=== PATIENT | male | born 1965 | race Hispanic/Latino ===

== ENCOUNTER 2018-09-04 12:56 | Inpatient (IN) | payer MEDICARE ==
[~2018-09-04] VITALS: Ht 167.6 cm; Wt 73.0 kg
[~2018-09-04 12:56] MED LIST: ETOMIDATE 2 MG/ML 10 ML VIAL IVP ONE; SUCCINYLCHOLINE CHLORIDE 20 MG/ML 10 ML VIAL IVP ONE
[2018-09-04 13:21] LABS: EOSINOPHILS % (AUTO) 1.7 % (0.0-8.0); HEMATOCRIT 52.2 % (42-54); LYMPHOCYTES % (AUTO) 29.1 % (21.0-51.0); MEAN CORPUSCULAR HGB CONC 34.3 g/dL (32.0-36.0); MEAN CORPUSCULAR VOLUME 99.1 fL (79-99); MONOCYTES % (AUTO) 10.6 % (3.0-13.0); NEUTROPHILS % (AUTO) 57.6 % (40.0-77.0); PLATELET COUNT (AUTO) 161 K/uL (130-400); RED BLOOD CELL COUNT(AUTO) 5.27 MIL/uL (4.50-6.20); RED CELL DISTRIBUTION WIDTH 13.5 % (11.0-15.5); WHITE BLOOD COUNT (AUTO) 5.5 K/uL (4.8-10.8)
[2018-09-04 13:30] LABS: CARBON DIOXIDE 20 mmol/L (21-32); CHLORIDE 105 mmol/L (101-111); CREATININE 1.2 mg/dL (0.5-1.5); GLOMERULAR FILTR. RATE CALC 68 mL/min (>60); GLUCOSE,RANDOM 113 mg/dL (70-105); POTASSIUM 3.3 mmol/L (3.5-5.1); SODIUM SERUM 141 mmol/L (136-145); UREA NITROGEN, BLOOD 8 mg/dL (7-18)
[2018-09-04 13:34] LABS: ALANINE AMINOTRANSFERASE 91 U/L (12-78); ALBUMIN 3.6 g/dL (3.5-5.0); ASPARTATE AMINOTRANSFERASE 81 U/L (10-37); BILIRUBIN,TOTAL 1.1 mg/dL (0.2-1.0); CREATINE KINASE, TOTAL 88 U/L (21-232); TOTAL PROTEIN, SERUM 6.8 g/dL (6.0-8.3)
[2018-09-04] MEDS ORDERED: LORAZEPAM 2 MG/ML 1 ML VIAL ONE ×2 (13:36→14:42)
[2018-09-04 13:47] LABS: ALCOHOL, BLOOD < 3 mg/dL (0-10)
[2018-09-04 13:57] LABS: B-TYPE NATRIURETIC PEPTIDE 21 pg/mL (0-100)
[2018-09-04 14:03] LABS: APPEARANCE,URINE Cloudy (CLEAR); BILIRUBIN,URINE Negative (NEGATIVE); COLOR,URINE Yellow (YELLOW); GLUCOSE, URINE (UA) Negative (NEGATIVE); KETONES,URINE Negative (NEGATIVE); LEUKOCYTE ESTERASE ,URINE Negative (NEGATIVE); NITRATE,URINE Negative (NEGATIVE); OCCULT BLOOD,URINE Negative (NEGATIVE); PH,URINE >=9.0 (5.0-8.0); PROTEIN,URINE Trace mg/dL (NEGATIVE)
[2018-09-04 14:09] LABS: AMPHET/METH SCREEN,URINE NEGATIVE (NEGATIVE); BARBITURATE SCREEN, URINE NEGATIVE (NEGATIVE); BENZODIAZEPINES SCREEN,URINE NEGATIVE (NEGATIVE); CANNABINOID SCREEN,URINE NEGATIVE (NEGATIVE); COCAINE SCREEN,URINE POSITIVE (NEGATIVE); OPIATE SCREEN,URINE NEGATIVE (NEGATIVE); PHENCYCLIDINE SCREEN,URINE NEGATIVE (NEGATIVE)
[2018-09-04 14:11] LABS: INR 4.23 (0.85-1.15); PARTIAL THROMBOPLASTIN TIME > 120.0 SEC (26.3-35.5); PROTHROMBIN TIME 43.2 SEC (9.6-11.6)
[2018-09-04] MEDS ORDERED: FOSPHENYTOIN SODIUM 1,000 MG in SODIUM CHLORIDE 0.9% 50 ML IJ ONE (14:15)
[2018-09-04] MEDS ORDERED: FOSPHENYTOIN SODIUM 500 MG/10ML VIAL IJ ONE (14:20)
[2018-09-04] MEDS ORDERED: SODIUM CHLORIDE 0.9% 100 ML IV ONE (14:21)
[2018-09-04 14:44] LABS: INR 0.94 (0.85-1.15); PARTIAL THROMBOPLASTIN TIME 28.2 SEC (26.3-35.5); PROTHROMBIN TIME 9.9 SEC (9.6-11.6)
[2018-09-04] MEDS ORDERED: PROPOFOL 1000 MG/100 ML 100 ML IV ONE ×2 (14:49→19:12)
[2018-09-04 15:08] LABS: BACTERIA,URINE Rare /HPF (None Seen); RBC,URINE 0-1 /HPF (0-1); SQUAMOUS EPITHELIAL CELL,UR Rare /HPF (0-2); WBC,URINE 0-1 /HPF (0-1)
[2018-09-04 15:09] LABS: AMORPHOUS SEDIMENT,UR Moderate /LPF (None Seen)
[2018-09-04] MEDS: SODIUM CHLORIDE 0.9% 1000ML 1,000 ML IV SCH (15:19)
[2018-09-04] MEDS ORDERED: MIDAZOLAM HCL 1 MG/ML 2ML VIAL ONE (15:25)
[2018-09-04] MEDS ORDERED: ONDANSETRON HCL 4 MG/2 ML VIAL IV PRN (15:30)
[2018-09-04] MEDS ORDERED: IPRATROPIUM/ALBUTEROL SULFATE 3 ML SOLUTION IH PRN (15:30)
[2018-09-04] MEDS ORDERED: MORPHINE SULFATE 2 MG/ML 1ML SYG IV PRN (15:30)
[2018-09-04] MEDS ORDERED: LACTULOSE 20 GM/30 ML UDCUP PO PRN (15:30)
[2018-09-04] MEDS ORDERED: MIDAZOLAM 100MG-0.9% NS 100ML 100 ML IV PRN (15:45)
[2018-09-04] MEDS ORDERED: SODIUM CHLORIDE 0.9% 1000ML 1,000 ML IV ONE (16:51)
[2018-09-04] MEDS: LEVETIRACETAM 500 MG in SODIUM CHLORIDE 0.9% 100 ML IV SCH (17:00)
[2018-09-04] MEDS ORDERED: NICARDIPINE IN NACL, ISO-OSM 200 ML IV PRN (17:15)
[2018-09-04] MEDS ORDERED: HYDRALAZINE HCL 20 MG/ML VIAL IV PRN (17:15)
[2018-09-04] MEDS ORDERED: LABETALOL 20 MG/4 ML DISP.SYRIN IV PRN (17:15)
[2018-09-04] MEDS: PHARMACY COMMUNICATION MISC SCH (17:15)
[2018-09-04 18:50] LABS: ABG BASE EXCESS -4.9 mmol/L (-2.0-3.0); ABG HCO3 19.7 mmol/L (21.0-28.0); ABG OXYGEN SATURATION 99.9 % (95.0-99.0); ABG PCO2 36 mmHg (35-48)
[2018-09-04 20:00] VITALS: BP 125/88
[2018-09-04 21:00] VITALS: BP 92/60
[2018-09-04 22:00] VITALS: BP 98/67
[2018-09-04 22:45] VITALS: BP 99/69
[2018-09-04 23:00] VITALS: BP 97/64
[2018-09-05] VITALS (37 sets, daily range): BP systolic 80–146; BP diastolic 48–93
[2018-09-05 00:22] LABS: ABG BASE EXCESS -5.3 mmol/L (-2.0-3.0); ABG OXYGEN SATURATION 99.2 % (95.0-99.0); ABG PCO2 34 mmHg (35-48)
[2018-09-05] MEDS: SODIUM CHLORIDE 0.9% 1000ML 1,000 ML IV SCH ×3 (01:19→23:46)
[2018-09-05] MEDS ORDERED: ESLI800T PO (02:29)
[2018-09-05] MEDS ORDERED: GABA-529 PO (02:29)
[2018-09-05] MEDS ORDERED: NITR0.4T50 SL (02:29)
[2018-09-05] MEDS ORDERED: DULO20CA18 PO (02:29)
[2018-09-05] MEDS ORDERED: PANT40TA25 PO (02:29)
[2018-09-05] MEDS ORDERED: SUCR1TAB2 PO (02:29)
[2018-09-05] MEDS ORDERED: AMLO10TA7 PO (02:29)
[2018-09-05] MEDS ORDERED: ZONI100C6 PO (02:29)
[2018-09-05] MEDS ORDERED: LACO200T2 PO (02:29)
[2018-09-05 04:02] LABS: MEAN CORPUSCULAR HEMOGLOBIN 34.7 pg (27.0-33.0); MEAN CORPUSCULAR HGB CONC 34.8 g/dL (32.0-36.0); MEAN CORPUSCULAR VOLUME 99.8 fL (79-99); PLATELET COUNT (AUTO) 147 K/uL (130-400); RED BLOOD CELL COUNT(AUTO) 4.61 MIL/uL (4.50-6.20); RED CELL DISTRIBUTION WIDTH 13.2 % (11.0-15.5); WHITE BLOOD COUNT (AUTO) 9.3 K/uL (4.8-10.8)
[2018-09-05 04:08] LABS: ALBUMIN 2.9 g/dL (3.5-5.0); BILIRUBIN,TOTAL 0.8 mg/dL (0.2-1.0); CREATININE 0.9 mg/dL (0.5-1.5); POTASSIUM 3.6 mmol/L (3.5-5.1); TOTAL PROTEIN, SERUM 5.6 g/dL (6.0-8.3)
[2018-09-05] MEDS: LEVETIRACETAM 500 MG in SODIUM CHLORIDE 0.9% 100 ML IV SCH (05:25)
[2018-09-05] MEDS: PROPOFOL 1000 MG/100 ML 100 ML IV PRN ×2 (05:26→21:22)
[2018-09-05] MEDS: PHARMACY COMMUNICATION MISC SCH ×3 (09:00→17:14)
[2018-09-05] MEDS ORDERED: ENOXAPARIN SODIUM 30 MG/0.3 ML SQ SCH (09:00)
[2018-09-05] MEDS ORDERED: COMPOUND IV MISC 1 EACH IVSOLN MISC PRN (11:30)
--- NOTE | 2018-09-05 12:15 | NUR ---
SIEZURE ACTIVITY DESPITE SEDATIVE MEDS, PATIENT IS SEEN HAVING CONTINUOUS REPETITIVE, TONIC CLONIC MOVEMENTS IN HIS ARMS, AND NOT RESPONDING TO VERBAL STIMULUS. ATIVAN GIVEN PER MD ORDER. PATIENT NOW POSTICTAL AND NO LONGER MOVING. ARMS AT REST BY HIS SIDE. WILL CONTINUE TO MONITOR PATIENT FOR SEIZURE ACTIVITY AND NOTIFY DR CABRERA.
[2018-09-05] MEDS: LORAZEPAM 2 MG/ML 1 ML VIAL IVP PRN (12:18)
[2018-09-05] MEDS: FOSPHENYTOIN SODIUM 100 MG/2 ML VIAL IV SCH ×2 (12:18→20:17)
[2018-09-05] MEDS: FAMOTIDINE/PF 20 MG/2 ML VIAL IV SCH (12:18)
[2018-09-05] MEDS ORDERED: IOHEXOL-350 75 ML VIAL IV ONE ×2 (13:54→14:15)
[2018-09-05] MEDS: LEVETIRACETAM 1,000 MG in SODIUM CHLORIDE 0.9% 100 ML IV SCH (17:31)
--- NOTE | 2018-09-05 19:30 | NUR ---
MOTHER OF PATIENT'S CHILDREN AT BEDSIDE SHE STATES THAT PATIENT WAS JUST AT [facility] IN [place] APPROXIMATELY THE LAST WEEK OF JULY AND WAS TOLD AFTER RECEIVING AN MRI THAT HE HAD A BRAIN TUMOR DEEP INSIDE NEAR THE CENTER OF HIS BRAIN. HE WAS THERE BECAUSE HE WAS EXPERIENCING SEIZURES AT THAT TIME WELL. WILL REQUEST MEDICAL RECORDS INCLUDING MRI.
[2018-09-05] MEDS: ESLICARBAZEPINE ACETATE 800 MG PO SCH (20:53)
[2018-09-05] MEDS: ZONISAMIDE 100 MG CAP PO SCH (20:53)
--- NOTE | 2018-09-05 23:30 | NUR ---
critical care critical care paged at this time due to decreased bp and fever
--- NOTE | 2018-09-05 23:35 | NUR ---
[facility] HOSTLER HELPER NOTIFIED AT THIS TIME OF LOW BP AND FEVER ATTEMPTS TO DECREASE SEDATION FAILED DUE TO PT HAVING TREMORS. NEW ORDERS RECEIVED AND WILL CARRY OUT. WILL CONTINUE TO MONITOR.
[2018-09-05] MEDS ORDERED: SODIUM CHLORIDE 0.9% 250 ML IV ONE (23:41)
[2018-09-05] MEDS ORDERED: NOREPINEPHRINE BITARTRATE 1 MG/1 ML ML IV ONE (23:41)
[2018-09-05] MEDS ORDERED: ACETAMINOPHEN 325 MG TAB PO PRN (23:45)
[2018-09-05] MEDS ORDERED: NOREPINEPHRINE 4MG/NS 250ML 250 ML IV SCH (23:45)
[2018-09-06] VITALS (33 sets, daily range): BP systolic 74–120; BP diastolic 48–71
[2018-09-06 00:25] LABS: APPEARANCE,URINE Clear (CLEAR); BILIRUBIN,URINE Moderate (NEGATIVE); COLOR,URINE Dark Yellow (YELLOW); GLUCOSE, URINE (UA) Negative (NEGATIVE); KETONES,URINE >=160 mg/dL (NEGATIVE); LEUKOCYTE ESTERASE ,URINE Small (NEGATIVE); NITRATE,URINE Negative (NEGATIVE); OCCULT BLOOD,URINE Negative (NEGATIVE); PH,URINE 5.5 (5.0-8.0); PROTEIN,URINE POS 1+ mg/dL (NEGATIVE)
[2018-09-06 00:39] LABS: BACTERIA,URINE None Seen /HPF (None Seen); RBC,URINE None Seen /HPF (0-1); SQUAMOUS EPITHELIAL CELL,UR Rare /HPF (0-2); WBC,URINE 0-1 /HPF (0-1)
[2018-09-06] MEDS: PHARMACY COMMUNICATION MISC SCH ×3 (01:15→17:15)
[2018-09-06] MEDS: LORAZEPAM 2 MG/ML 1 ML VIAL IVP PRN (01:58)
[2018-09-06] MEDS: FOSPHENYTOIN SODIUM 100 MG/2 ML VIAL IV SCH ×3 (02:56→20:15)
[2018-09-06 04:05] LABS: CREATININE 1.1 mg/dL (0.5-1.5); POTASSIUM 3.6 mmol/L (3.5-5.1)
[2018-09-06 04:09] LABS: HEMATOCRIT 48.3 % (42-54); MEAN CORPUSCULAR HEMOGLOBIN 34.5 pg (27.0-33.0); MEAN CORPUSCULAR HGB CONC 34.1 g/dL (32.0-36.0); MEAN CORPUSCULAR VOLUME 101.1 fL (79-99); PLATELET COUNT (AUTO) 147 K/uL (130-400); RED BLOOD CELL COUNT(AUTO) 4.78 MIL/uL (4.50-6.20); RED CELL DISTRIBUTION WIDTH 13.8 % (11.0-15.5); WHITE BLOOD COUNT (AUTO) 17.2 K/uL (4.8-10.8)
[2018-09-06] MEDS: LEVETIRACETAM 1,000 MG in SODIUM CHLORIDE 0.9% 100 ML IV SCH ×2 (04:37→17:15)
[2018-09-06] MEDS: PROPOFOL 1000 MG/100 ML 100 ML IV PRN ×2 (05:23→11:15)
[2018-09-06] MEDS: ZONISAMIDE 100 MG CAP PO SCH ×2 (09:00→20:28)
[2018-09-06] MEDS ORDERED: VANCOMYCIN PROTOCOL PER PHARMACY IV SCH (09:00)
[2018-09-06] MEDS: CHLORHEXIDINE GLUCONATE 473 ML MOUTHWASH MM SCH ×3 (09:00→20:29)
[2018-09-06] MEDS: FAMOTIDINE/PF 20 MG/2 ML VIAL IV SCH (09:00)
--- NOTE | 2018-09-06 09:30 | NUR ---
2D ECHO IN PROGRESS. SISTER IN ROOM AND GIVEN UPDATE.
[2018-09-06] MEDS ORDERED: COMPOUND IV REFRIGERATED 1 EACH IVSOLN MISC PRN (09:45)
[2018-09-06 10:38] LABS: INR 0.92 (0.85-1.15); PARTIAL THROMBOPLASTIN TIME 32.9 SEC (26.3-35.5); PROTHROMBIN TIME 9.7 SEC (9.6-11.6)
[2018-09-06] MEDS: ZOSYN 3.375GM+NS 50ML 50 ML IV SCH ×2 (11:18→17:15)
--- NOTE | 2018-09-06 12:48 | NUR ---
KECIA PLAN PATIENT STILL UNSTABLE. NO FAMILY AT BEDSIDE. YESSENIA WILL CONTINUE TO FOLLOW AND WILL DO IA WHEN FAMILY AVAILABLE AND PATIENT NO LONGER CRITICAL. Addendum: 09/06/18 at 1249 by ANA LAURA LAURA RN CM Amended: Links added.
[2018-09-06] MEDS ORDERED: VANCOMYCIN 1.5 GM in SODIUM CHLORIDE 0.9% 250 ML IV ONE (13:00)
--- NOTE | 2018-09-06 16:31 | NUR ---
[facility] CONSULT NO OPEN WOUNDS PER FLOOR NURSE NIRAJ MACHADO; NO [facility] RECOMMENDATIONS SUBMITTED AT THIS TIME. Addendum: 09/06/18 at 1633 by ANGEL KRISHNA LVN Amended: Links added.
--- NOTE | 2018-09-06 16:37 | NUR ---
Nutrition intervention: Nutrition notification for TF via OGT. Pt admitted for left frontal lobe hemorrhage vs mass. Pt currently NPO, OGT in place. Alb 2.9. PMH of brain tumor and seizures. No BM recorded. BMI 24.7. TF recommendations: Continuous Jevity 1.5 Goal Rate 50ml/hr Free water 170ml Q6H Addendum: 09/06/18 at [address] Amended: Links added.
[2018-09-06] MEDS: SODIUM CHLORIDE 0.9% 1000ML 1,000 ML IV SCH ×2 (17:19→19:44)
[2018-09-06] MEDS: ESLICARBAZEPINE ACETATE 800 MG PO SCH (20:29)
[2018-09-06] MEDS: M.V.I. IV [ADULT] 10 ML, FOLIC ACID 1 MG, THIAMINE HCL 100 MG in SODIUM CHLORIDE 0.9% 1... IV SCH (20:34)
[2018-09-06] MEDS: VANCOMYCIN 750MG + NS 250 ML IV SCH ×2 (20:49)
[2018-09-07] VITALS (36 sets, daily range): BP systolic 91–139; BP diastolic 56–94
[2018-09-07] MEDS: PHARMACY COMMUNICATION MISC SCH ×2 (00:05→09:15)
[2018-09-07] MEDS: ZOSYN 3.375GM+NS 50ML 50 ML IV SCH ×3 (00:34→16:43)
[2018-09-07] MEDS: SODIUM CHLORIDE 0.9% 1000ML 1,000 ML IV SCH ×3 (02:26→23:19)
[2018-09-07] MEDS: FOSPHENYTOIN SODIUM 100 MG/2 ML VIAL IV SCH ×3 (03:00→18:16)
[2018-09-07 03:59] LABS: BASOPHILS % (AUTO) 0.2 % (0.0-5.0); EOSINOPHILS % (AUTO) 0.1 % (0.0-8.0); HEMATOCRIT 43.4 % (42-54); LYMPHOCYTES % (AUTO) 4.9 % (21.0-51.0); MEAN CORPUSCULAR HEMOGLOBIN 34.1 pg (27.0-33.0); MEAN CORPUSCULAR VOLUME 100.5 fL (79-99); NEUTROPHILS % (AUTO) 87.8 % (40.0-77.0); PLATELET COUNT (AUTO) 115 K/uL (130-400); RED BLOOD CELL COUNT(AUTO) 4.32 MIL/uL (4.50-6.20); RED CELL DISTRIBUTION WIDTH 13.6 % (11.0-15.5); WHITE BLOOD COUNT (AUTO) 17.6 K/uL (4.8-10.8)
[2018-09-07 04:07] LABS: PLATELET MORPHOLOGY COMMENT SLIGHTLY DECREASED
[2018-09-07 04:10] LABS: CREATININE 1.2 mg/dL (0.5-1.5); MAGNESIUM 1.8 mg/dL (1.80-2.40); PHOSPHORUS 2.6 mg/dL (2.5-4.9); POTASSIUM 3.4 mmol/L (3.5-5.1)
[2018-09-07] MEDS: LEVETIRACETAM 1,000 MG in SODIUM CHLORIDE 0.9% 100 ML IV SCH ×2 (04:13→16:44)
[2018-09-07 04:18] LABS: ABG BASE EXCESS -6.7 mmol/L (-2.0-3.0); ABG HCO3 17.4 mmol/L (21.0-28.0); ABG OXYGEN SATURATION 96.1 % (95.0-99.0); ABG PCO2 31 mmHg (35-48)
[2018-09-07] MEDS: VANCOMYCIN 750MG + NS 250 ML IV SCH ×6 (04:55→20:50)
[2018-09-07] MEDS: ZONISAMIDE 100 MG CAP PO SCH ×2 (08:54→20:50)
[2018-09-07] MEDS: FAMOTIDINE/PF 20 MG/2 ML VIAL IV SCH (08:54)
[2018-09-07] MEDS: M.V.I. IV [ADULT] 10 ML, FOLIC ACID 1 MG, THIAMINE HCL 100 MG in SODIUM CHLORIDE 0.9% 1... IV SCH (09:13)
[2018-09-07] MEDS: CHLORHEXIDINE GLUCONATE 473 ML MOUTHWASH MM SCH ×3 (09:54→20:51)
[2018-09-07] MEDS ORDERED: LIDOCAINE HCL-MPF 1% 2ML VIAL IVP PRN (17:00)
[2018-09-07] MEDS ORDERED: MAGNESIUM 2GM PREMIX 50ML 50 ML IV PRN (17:00)
[2018-09-07] MEDS: POTASSIUM CHLORIDE 20MEQ/100ML 100 ML IV PRN (17:28)
--- NOTE | 2018-09-07 20:05 | NUR ---
COUGHING TO THE POINT VOMITING. NO MEDICATION ORDERED FOR THIS . MANAGER OF PROGRAM BEEPED FOR ORDERS.
--- NOTE | 2018-09-07 20:10 | NUR ---
STATUS HAS BILATERAL MITTENS IN PLACE TO PREVENT SELF EXTUBATION FROM DAY SHIFT. HAS SEDATION ON WITH VERSED FROM DAY SHIFT. DESPITE THIS KICKS UP LEGS AND LIFTS ARMS TO TRY TO REMOVE ETT. Pedro VALENCIA NP BEEPED FOR ORDERS.
--- NOTE | 2018-09-07 20:15 | NUR ---
STATUS REFUSING MEDICATIONS AT THIS TIME. STATES HE WILL TAKE THEM WHEN HE FEELS BETTER. Addendum: 09/07/18 at 2326 by ADAM GERONIMO RN RN ELSY PT CHART
--- NOTE | 2018-09-07 20:15 | NUR ---
[facility] APPRENTICE CALL Pedro VALENCIA NP CALLS AND INFORMED OF SEDATION FROM DAY SHIFT OF VERSED AND STILL ATTEMPTS TO SIT UP AND PULL AT ETT DESPITE BILATERAL MITTENS. ORDERS RECEIVED.
[2018-09-07] MEDS ORDERED: PROPOFOL 1000 MG/100 ML IV PRN (20:30)
[2018-09-07] MEDS: PROPOFOL 1000 MG/100 ML 100 ML IV PRN (20:53)
[2018-09-07] MEDS: ESLICARBAZEPINE ACETATE 800 MG PO SCH (21:03)
[2018-09-08] VITALS (27 sets, daily range): BP systolic 96–128; BP diastolic 45–91
[2018-09-08] MEDS: ZOSYN 3.375GM+NS 50ML 50 ML IV SCH ×3 (01:18→16:12)
[2018-09-08] MEDS: FOSPHENYTOIN SODIUM 100 MG/2 ML VIAL IV SCH ×3 (02:58→19:23)
[2018-09-08 03:49] LABS: BASOPHILS % (AUTO) 0.2 % (0.0-5.0); EOSINOPHILS % (AUTO) 1.5 % (0.0-8.0); LYMPHOCYTES % (AUTO) 9.9 % (21.0-51.0); MEAN CORPUSCULAR HEMOGLOBIN 34.5 pg (27.0-33.0); MEAN CORPUSCULAR HGB CONC 34.1 g/dL (32.0-36.0); MEAN CORPUSCULAR VOLUME 101.3 fL (79-99); MONOCYTES % (AUTO) 7.7 % (3.0-13.0); NEUTROPHILS % (AUTO) 80.7 % (40.0-77.0); PLATELET COUNT (AUTO) 108 K/uL (130-400); RED BLOOD CELL COUNT(AUTO) 4.05 MIL/uL (4.50-6.20); RED CELL DISTRIBUTION WIDTH 13.6 % (11.0-15.5); WHITE BLOOD COUNT (AUTO) 11.5 K/uL (4.8-10.8)
[2018-09-08 04:05] LABS: CREATININE 0.7 mg/dL (0.5-1.5); MAGNESIUM 2.3 mg/dL (1.80-2.40); PHOSPHORUS 1.4 mg/dL (2.5-4.9); POTASSIUM 3.7 mmol/L (3.5-5.1)
[2018-09-08] MEDS: POTASSIUM CHLORIDE 20MEQ/100ML 100 ML IV PRN (04:24)
[2018-09-08] MEDS: VANCOMYCIN 750MG + NS 250 ML IV SCH ×6 (05:06→20:45)
[2018-09-08] MEDS: LEVETIRACETAM 1,000 MG in SODIUM CHLORIDE 0.9% 100 ML IV SCH ×2 (05:06→16:10)
[2018-09-08] MEDS: FAMOTIDINE/PF 20 MG/2 ML VIAL IV SCH (08:08)
[2018-09-08] MEDS: ZONISAMIDE 100 MG CAP PO SCH ×2 (08:08→20:45)
--- NOTE | 2018-09-08 08:39 | NUR ---
PATIENT STARTED ON VENTILATOR WEANING TRIALS. CPAP 10/5. PATIENT ABLE TO FOLLOW SIMPLE COMMANDS.
[2018-09-08] MEDS ORDERED: POTASSIUM PHOS 15 mMOL+NS250ML 250 ML IV PRN (08:45)
--- NOTE | 2018-09-08 09:25 | NUR ---
PATIENT EXTUBATED PER ICU WINDOW TINTER ORDER. PATIENT TOLERATED WELL.
[2018-09-08] MEDS ORDERED: IPRATROPIUM/ALBUTEROL SULFATE 3 ML SOLUTION IH ONE (10:29)
[2018-09-08] MEDS: IPRATROPIUM/ALBUTEROL SULFATE 3 ML SOLUTION IH SCH ×2 (18:13→23:26)
[2018-09-08] MEDS: SODIUM CHLORIDE 0.9% 1000ML 1,000 ML IV SCH (19:19)
--- NOTE | 2018-09-08 20:00 | NUR ---
ASSESSMENT AWAKE. RESTING IN BED. DENIES PAIN. REMAINS ON SEIZURE PRECAUTIONS. REMINDED NOT TO GET UP ON OWN. BED ALARM IN USE. ASSESSMENT COMPLETED SEE FLOW SHEET. Addendum: 09/08/18 at 2105 by ADAM GERONIMO RN RN Amended: Links added.
[2018-09-08] MEDS: ESLICARBAZEPINE ACETATE 800 MG PO SCH (20:45)
[2018-09-09] VITALS (13 sets, daily range): BP systolic 101–126; BP diastolic 58–83
[2018-09-09] MEDS: ZOSYN 3.375GM+NS 50ML 50 ML IV SCH ×2 (02:26→09:30)
[2018-09-09] MEDS: FOSPHENYTOIN SODIUM 100 MG/2 ML VIAL IV SCH ×2 (03:23→09:30)
[2018-09-09] MEDS: SODIUM CHLORIDE 0.9% 1000ML 1,000 ML IV SCH (04:09)
[2018-09-09] MEDS: LEVETIRACETAM 1,000 MG in SODIUM CHLORIDE 0.9% 100 ML IV SCH (05:20)
[2018-09-09] MEDS: VANCOMYCIN 750MG + NS 250 ML IV SCH ×2 (05:21)
[2018-09-09] MEDS: IPRATROPIUM/ALBUTEROL SULFATE 3 ML SOLUTION IH SCH ×2 (06:22→11:28)
[2018-09-09] MEDS: FAMOTIDINE/PF 20 MG/2 ML VIAL IV SCH (09:30)
[2018-09-09] MEDS: ZONISAMIDE 100 MG CAP PO SCH (09:30)
--- NOTE | 2018-09-09 12:30 | NUR ---
PATIENT WISHES TO LEAVE AMA, DR WU AND DR REAVES MADE AWARE; PATIENT TO LEAVE AMA
--- NOTE | 2018-09-09 12:55 | NUR ---
PATIENT AGAIN MADE AWARE OF DANGERS OF LEAVING AMA AT THIS TIME AND REFUSES TO STAY; FAMILY AWARE AND AT BEDSIDE; PATIENT SIGNED FORM; CALERO CATHETER AND PICC LINE REMOVED; PATIENT LEFT WITH FAMILY. DR WU AND DR REAVES AWARE.
--- NOTE | 2018-09-09 13:21 | NUR ---
SECURITY CALLED AND STATED FAMILY DOWNSTAIRS TO RECEIVE PATIENT'S BELONGINGS.
== END 2018-09-09 13:10 | disposition left against medical advice (07) | DRG 917 ==
LOC: EDH 12:56 → EDHIP 15:19 → 2CH 19:56
PROVIDERS: ADMIT Hospitalist; ATTEND Hospitalist
PROC: 5A1945Z Respiratory Ventilation, 24-96 Consecutive Hours (ICD-10-PCS; principal; 2018-09-04)
PROC: 0BH17EZ Insertion of Endotracheal Airway into Trachea, Via Natural or Artificial Opening (ICD-10-PCS; 2018-09-04)
PROC: 02HV33Z Insertion of Infusion Device into Superior Vena Cava, Percutaneous Approach (ICD-10-PCS; 2018-09-06)
DX: T40.5X1A Poisoning by cocaine, accidental (unintentional), initial encounter (principal); S06.369A Traumatic hemorrhage of cerebrum, unspecified, with loss of consciousness of unspecified duration, initial encounter; J96.90 Respiratory failure, unspecified, unspecified whether with hypoxia or hypercapnia; J18.9 Pneumonia, unspecified organism; F14.10 Cocaine abuse, uncomplicated; F41.9 Anxiety disorder, unspecified; G40.909 Epilepsy, unspecified, not intractable, without status epilepticus; I20.9 Angina pectoris, unspecified; Z53.9 Procedure and treatment not carried out, unspecified reason; W06.XXXA Fall from bed, initial encounter; Z86.79 Personal history of other diseases of the circulatory system; Y93.89 Activity, other specified; Y92.092 Bedroom in other non-institutional residence as the place of occurrence of the external cause; Y99.8 Other external cause status
CPT/HCPCS: 31500; 36415; 36600; 70450; 70496; 71045; 72125; 80048; 80053; 80185; 80202; 80305; 81001; 82550; 82803; 82948; 83735; 83880; 84100; 84484; 85025; 85027; 85610; 85730; 87040; 87071; 87077; 87088; 87186; 87205; 93005; 93306; 93880; 94002; 94003; 94150; 94640; 94664; 95816; 99291; C1894; G0378; G0480; J0330; J1953; J2060; J2250; J2543; J2704; J3370; J3411; J3475; J3480; J3490; J7030; Q2009; Q9967